=== PATIENT | male | born 1960 | race Caucasian/White ===

== ENCOUNTER 2018-02-02 02:28 | Inpatient (IN) | payer MEDICARE, MEDICAID ==
[~2018-02-02] VITALS: Ht 170.2 cm; Wt 103.0 kg
[~2018-02-02 02:28] MED LIST: ABAC1TAB7 PO; ALPH200C PO; ASPI-496 PO; ATAZ150C PO; ATAZ200C PO; BENZ1TAB61 PO; BENZ2TAB6 PO; CITA20TA9 PO; CLON0.5T20 PO; FLUD0.1T PO; MULT-257 PO; NAPR-685 PO; OMEG-82 PO; PALI1.5T PO; PALI9TAB PO; SODI1TAB15 PO
[2018-02-02] MEDS ORDERED: SODIUM CHLORIDE 0.9% 1,000ML IVBOLUS ONE ×2 (03:00→03:30)
[2018-02-02 03:04] LABS: BASOPHILS # (AUTO) 0.01 x10^3/uL (0-0.1); BASOPHILS % (AUTO) 0 % (0-1); EOSINOPHILS % (AUTO) 0 % (1-7); LYMPHOCYTES # (AUTO) 0.25 x10^3/uL (1-3.4); LYMPHOCYTES % (AUTO) 2 % (22-44); MD NO; MEAN CORPUSCULAR HEMOGLOBIN 33.3 pg (27.5-34.5); MEAN CORPUSCULAR HGB CONC 33.7 g/dL (33.2-36.2); MEAN CORPUSCULAR VOLUME 98.8 fL (81-97); MEAN PLATELET VOLUME 10.4 fL (7.4-10.4); MONOCYTES # (AUTO) 0.88 x10^3/uL (0.2-0.8); MONOCYTES % (AUTO) 7 % (2-9); NEUTROPHILS # (AUTO) 11.76 x10^3/uL (1.8-6.8); NEUTROPHILS % (AUTO) 91 % (42-75); PH, VENOUS 7.239 pH (7.320-7.420); PLATELET COUNT 173 x10^3/uL (130-400); RED BLOOD COUNT 5.02 x10^6/uL (4.38-5.82); RED CELL DISTRIBUTION WIDTH 12.5 % (9.4-14.8)
[2018-02-02 03:11] LABS: ACETONE, SERUM Large (80mg/dL) mg/dL (Negative)
[2018-02-02 03:18] LABS: ALANINE AMINOTRANSFERASE 58 U/L (12-78); ALBUMIN 3.7 g/dL (3.4-5.0); ANION GAP 28 mmol/L (5-15); CALCIUM 9.5 mg/dL (8.5-10.1); CHLORIDE 79 mmol/L (98-107); CREATININE 2.32 mg/dL (0.7-1.3)
[2018-02-02 03:22] LABS: ALKALINE PHOSPHATASE 186 U/L (45-117); BILIRUBIN,TOTAL 5.6 mg/dL (0.2-1.0); TOTAL PROTEIN 7.6 g/dL (6.4-8.2); TROPONIN I < 0.015 ng/mL (0.000-0.045)
[2018-02-02] MEDS ORDERED: REGULAR INSULIN 62.5 UNITS in SODIUM CHLORIDE 0.9% 249.375 ML IV PRN ×2 (03:25→04:53)
[2018-02-02 03:29] LABS: CULTURE INDICATED? NO; MICROSCOPIC AUTO
[2018-02-02] MEDS ORDERED: SODIUM CHLORIDE 0.9% 1,000 ML IV ONE (04:10)
[2018-02-02] MEDS ORDERED: D5%-0.45% NACL 1,000 ML IV PRN ×2 (04:53→10:00)
[2018-02-02] MEDS ORDERED: SODIUM CHLORIDE 0.9% 1,000 ML IV SCH ×2 (04:53→09:55)
[2018-02-02] MEDS ORDERED: DEXTROSE 4 GM TAB.CHEW PO PRN (05:00)
[2018-02-02] MEDS ORDERED: DEXTROSE 50%, 50ML SYRINGE IVPush PRN (05:00)
[2018-02-02] MEDS ORDERED: GLUCAGON 1 MG IM PRN (05:00)
[2018-02-02 05:16] LABS: ANION GAP 24 mmol/L (5-15); CALCIUM 8.7 mg/dL (8.5-10.1); CHLORIDE 99 mmol/L (98-107)
[2018-02-02 05:20] LABS: CREATININE 1.68 mg/dL (0.7-1.3)
[2018-02-02 05:28] LABS: HEMOGLOBIN A1C 11.8 % (4.2-6.3)
[2018-02-02] MEDS ORDERED: ENOXAPARIN 30 MG/0.3 ML SQ SCH (09:00)
[2018-02-02 09:26] LABS: ANION GAP 13 mmol/L (5-15); CALCIUM 9.1 mg/dL (8.5-10.1); CHLORIDE 102 mmol/L (98-107); CREATININE 1.78 mg/dL (0.7-1.3)
[2018-02-02] MEDS ORDERED: POTASSIUM CHLORIDE 10% 40 MEQ/30 ML UDC PO ONE (10:00)
[2018-02-02 10:16] LABS: AMPHETAMINE SCREEN, URINE Negative (Negative); BARBITURATE SCREEN, URINE Negative (Negative); BENZODIAZEPINE SCREEN, URINE Negative (Negative); CANNABINOID SCREEN, URINE Negative (Negative); COCAINE SCREEN, URINE Negative (Negative); METHADONE SCREEN, URINE Negative (Negative); OPIATE SCREEN, URINE Negative (Negative)
[2018-02-02] MEDS: SODIUM CHLORIDE FLUSH 10ML SYR IVF SCH ×2 (10:23→21:13)
[2018-02-02] MEDS: ENOXAPARIN 40 MG/0.4 ML SQ SCH (10:23)
[2018-02-02] MEDS: REGULAR INSULIN 62.5 UNITS in SODIUM CHLORIDE 0.9% 249.375 ML IV PRN (10:24)
[2018-02-02 13:41] LABS: ANION GAP 11 mmol/L (5-15); CALCIUM 9.2 mg/dL (8.5-10.1); CHLORIDE 109 mmol/L (98-107); CREATININE 1.61 mg/dL (0.7-1.3)
[2018-02-02] MEDS ORDERED: INSULIN GLARGINE 100 UNITS/ML, PEN SQ-INSULIN SCH (16:30)
[2018-02-02 18:37] LABS: ANION GAP 14 mmol/L (5-15); CALCIUM 8.2 mg/dL (8.5-10.1); CHLORIDE 105 mmol/L (98-107); CREATININE 1.31 mg/dL (0.7-1.3)
[2018-02-02] MEDS ORDERED: POTASSIUM CHLORIDE 20 MEQ TAB.ER.PRT PO ONE (19:30)
[2018-02-02] MEDS ORDERED: POTASSIUM CHLORIDE 40 MEQ in SODIUM CHLORIDE 0.9% 500 ML IV ONE (20:30)
[2018-02-02] MEDS: FLUDROCORTISONE 0.1 MG TABLET PO SCH (21:14)
[2018-02-02 21:56] LABS: ANION GAP 11 mmol/L (5-15); CALCIUM 8.8 mg/dL (8.5-10.1); CHLORIDE 108 mmol/L (98-107); CREATININE 1.21 mg/dL (0.7-1.3)
[2018-02-03 01:03] LABS: ANION GAP 11 mmol/L (5-15); CALCIUM 8.4 mg/dL (8.5-10.1); CHLORIDE 109 mmol/L (98-107); CREATININE 0.94 mg/dL (0.7-1.3)
[2018-02-03 04:00] VITALS: BP 140/76
[2018-02-03] MEDS: REGULAR INSULIN 62.5 UNITS in SODIUM CHLORIDE 0.9% 249.375 ML IV PRN (05:34)
[2018-02-03 05:55] LABS: CHLORIDE 109 mmol/L (98-107)
[2018-02-03 06:03] LABS: ALANINE AMINOTRANSFERASE 55 U/L (12-78); ALBUMIN 2.9 g/dL (3.4-5.0); ALKALINE PHOSPHATASE 89 U/L (45-117); ANION GAP 9 mmol/L (5-15); BILIRUBIN,TOTAL 3.4 mg/dL (0.2-1.0); CALCIUM 8.1 mg/dL (8.5-10.1); CREATININE 1.03 mg/dL (0.7-1.3); TOTAL PROTEIN 5.9 g/dL (6.4-8.2)
[2018-02-03 06:11] LABS: BASOPHILS % (AUTO) 0 % (0-1); EOSINOPHILS # (AUTO) 0.03 x10^3/uL (0-0.4); EOSINOPHILS % (AUTO) 1 % (1-7); LYMPHOCYTES # (AUTO) 0.56 x10^3/uL (1-3.4); LYMPHOCYTES % (AUTO) 11 % (22-44); MD NO; MEAN CORPUSCULAR HEMOGLOBIN 33.8 pg (27.5-34.5); MEAN CORPUSCULAR VOLUME 96.5 fL (81-97); MEAN PLATELET VOLUME 8.9 fL (7.4-10.4); MONOCYTES # (AUTO) 0.58 x10^3/uL (0.2-0.8); MONOCYTES % (AUTO) 12 % (2-9); NEUTROPHILS # (AUTO) 3.89 x10^3/uL (1.8-6.8); NEUTROPHILS % (AUTO) 77 % (42-75); PLATELET COUNT 113 x10^3/uL (130-400); RED BLOOD COUNT 4.29 x10^6/uL (4.38-5.82); RED CELL DISTRIBUTION WIDTH 12.9 % (9.4-14.8)
[2018-02-03] MEDS ORDERED: LAMIVUDINE PO SCH (09:00)
[2018-02-03] MEDS ORDERED: VANCOMYCIN PER PHARMACY MC PRN ×2 (09:00→13:00)
[2018-02-03] MEDS ORDERED: POTASSIUM PHOSPHATE 44 MEQ in SODIUM CHLORIDE 0.9% 500 ML IV ONE (09:00)
[2018-02-03] MEDS ORDERED: ABACAVIR SULFATE PO SCH (09:00)
[2018-02-03] MEDS ORDERED: PHARMACOKINETIC MONITORING MC PRN ×2 (09:30→14:00)
[2018-02-03] MEDS ORDERED: PHARMACOKINETIC CONSULTATION MC ONE ×2 (09:30→14:00)
[2018-02-03] MEDS: LAMIVUDINE 150 MG TABLET PO SCH (10:30)
[2018-02-03] MEDS: ATAZANAVIR 150 MG PO SCH (10:30)
[2018-02-03] MEDS: OMEGA-3/FISH OIL CAPSULE PO SCH (10:59)
[2018-02-03] MEDS: FLUDROCORTISONE 0.1 MG TABLET PO SCH ×3 (10:59→21:39)
[2018-02-03] MEDS: MULTIVITAMIN 1 TABLET PO SCH (10:59)
[2018-02-03] MEDS: BENZTROPINE 1 MG TABLET PO SCH (10:59)
[2018-02-03] MEDS: ASPIRIN 81 MG TABLET EC PO SCH (11:00)
[2018-02-03] MEDS: CITALOPRAM 20 MG TABLET PO SCH (11:00)
[2018-02-03] MEDS: ENOXAPARIN 40 MG/0.4 ML SQ SCH (11:01)
[2018-02-03] MEDS: ABACAVIR 300 MG TABLET PO SCH (11:12)
[2018-02-03] MEDS: VANCOMYCIN 2,000 MG in SODIUM CHLORIDE 0.9% 500 ML IV SCH (12:04)
[2018-02-03 12:18] LABS: ANION GAP 9 mmol/L (5-15); CALCIUM 8.3 mg/dL (8.5-10.1); CHLORIDE 108 mmol/L (98-107); CREATININE 0.84 mg/dL (0.7-1.3)
[2018-02-03] MEDS ORDERED: INSULIN LISPRO 100 UNITS/ML, PEN SQ-INSULIN ONE (12:30)
[2018-02-03] MEDS ORDERED: INSULIN GLARGINE 100 UNITS/ML, PEN SQ-INSULIN SCH (12:30)
[2018-02-03] MEDS ORDERED: INSULIN LISPRO 100 UNITS/ML, PEN SQ-INSULIN SCH (12:30)
[2018-02-03] MEDS: SODIUM CHLORIDE FLUSH 10ML SYR IVF SCH ×2 (12:48→21:41)
[2018-02-03] MEDS ORDERED: LIDOCAINE-MPF 1%, 2ML ONE (13:07)
[2018-02-03] MEDS: INSULIN LISPRO 100 UNITS/ML, PEN SQ-INSULIN SCH ×3 (13:56→21:41)
[2018-02-03] MEDS ORDERED: VANCOMYCIN 2,000 MG in SODIUM CHLORIDE 0.9% 500 ML IV SCH (14:00)
[2018-02-03] MEDS ORDERED: INSULIN GLARGINE 100 UNITS/ML, PEN SQ-INSULIN ONE (14:00)
[2018-02-03 19:10] LABS: ANION GAP 8 mmol/L (5-15); CALCIUM 8.2 mg/dL (8.5-10.1); CHLORIDE 108 mmol/L (98-107); CREATININE 0.82 mg/dL (0.7-1.3)
[2018-02-04] MEDS ORDERED: INSULIN GLARGINE 100 UNITS/ML, PEN SQ-INSULIN SCH ×2 (00:30→12:30)
[2018-02-04] MEDS: INSULIN LISPRO 100 UNITS/ML, PEN SQ-INSULIN SCH ×4 (01:15→21:47)
[2018-02-04] MEDS: VANCOMYCIN 2,000 MG in SODIUM CHLORIDE 0.9% 500 ML IV SCH (03:19)
[2018-02-04 04:00] VITALS: BP 138/77
[2018-02-04 04:51] LABS: MEAN CORPUSCULAR HEMOGLOBIN 33.9 pg (27.5-34.5); MEAN CORPUSCULAR VOLUME 96.7 fL (81-97); MEAN PLATELET VOLUME 8.6 fL (7.4-10.4); PLATELET COUNT 95 x10^3/uL (130-400); RED BLOOD COUNT 4.01 x10^6/uL (4.38-5.82); RED CELL DISTRIBUTION WIDTH 12.7 % (9.4-14.8)
[2018-02-04 04:55] LABS: ALANINE AMINOTRANSFERASE 67 U/L (12-78); ALBUMIN 2.5 g/dL (3.4-5.0); ANION GAP 11 mmol/L (5-15); CALCIUM 8.3 mg/dL (8.5-10.1); CHLORIDE 108 mmol/L (98-107); CREATININE 0.79 mg/dL (0.7-1.3)
[2018-02-04 04:57] LABS: ALKALINE PHOSPHATASE 83 U/L (45-117); BILIRUBIN,TOTAL 4.4 mg/dL (0.2-1.0); TOTAL PROTEIN 5.4 g/dL (6.4-8.2)
[2018-02-04 05:37] LABS: BASOPHILS # (AUTO) 0.02 x10^3/uL (0-0.1); BASOPHILS % (AUTO) 1 % (0-1); EOSINOPHILS # (AUTO) 0.01 x10^3/uL (0-0.4); EOSINOPHILS % (AUTO) 0 % (1-7); LYMPHOCYTES # (AUTO) 0.72 x10^3/uL (1-3.4); LYMPHOCYTES % (AUTO) 23 % (22-44); MD SCAN; MONOCYTES # (AUTO) 0.38 x10^3/uL (0.2-0.8); MONOCYTES % (AUTO) 12 % (2-9); NEUTROPHILS # (AUTO) 2.06 x10^3/uL (1.8-6.8); NEUTROPHILS % (AUTO) 65 % (42-75)
[2018-02-04] MEDS ORDERED: POTASSIUM PHOSPHATE 44 MEQ in SODIUM CHLORIDE 0.9% 500 ML IV ONE (07:30)
[2018-02-04 08:32] LABS: FOLATE LEVEL 15.5 ng/mL (3.1-17.5); THYROID STIMULATING HORMONE 0.473 mIU/L (0.358-3.740)
[2018-02-04] MEDS: ATAZANAVIR 150 MG PO SCH (09:50)
[2018-02-04] MEDS: OMEGA-3/FISH OIL CAPSULE PO SCH (09:56)
[2018-02-04] MEDS: CITALOPRAM 20 MG TABLET PO SCH (09:56)
[2018-02-04] MEDS: ASPIRIN 81 MG TABLET EC PO SCH (09:56)
[2018-02-04] MEDS: FLUDROCORTISONE 0.1 MG TABLET PO SCH ×3 (09:56→21:01)
[2018-02-04] MEDS: ENOXAPARIN 40 MG/0.4 ML SQ SCH (09:56)
[2018-02-04] MEDS: BENZTROPINE 1 MG TABLET PO SCH (09:56)
[2018-02-04] MEDS: MULTIVITAMIN 1 TABLET PO SCH (09:57)
[2018-02-04] MEDS: ABACAVIR 300 MG TABLET PO SCH (10:01)
[2018-02-04] MEDS: LAMIVUDINE 150 MG TABLET PO SCH (10:01)
[2018-02-04] MEDS: SODIUM CHLORIDE FLUSH 10ML SYR IVF SCH ×2 (10:03→21:01)
[2018-02-04 19:02] VITALS: BP 132/74
[2018-02-05] MEDS: INSULIN GLARGINE 100 UNITS/ML, PEN SQ-INSULIN SCH ×3 (00:21→21:42)
[2018-02-05 03:11] LABS: MEAN CORPUSCULAR HEMOGLOBIN 33.8 pg (27.5-34.5); MEAN CORPUSCULAR HGB CONC 34.8 g/dL (33.2-36.2); MEAN CORPUSCULAR VOLUME 97.1 fL (81-97); RED CELL DISTRIBUTION WIDTH 12.9 % (9.4-14.8)
[2018-02-05 03:20] LABS: ANION GAP 7 mmol/L (5-15); CALCIUM 8.6 mg/dL (8.5-10.1); CHLORIDE 108 mmol/L (98-107); CREATININE 0.79 mg/dL (0.7-1.3)
[2018-02-05 03:25] LABS: BASOPHILS # (AUTO) 0.01 x10^3/uL (0-0.1); BASOPHILS % (AUTO) 0 % (0-1); EOSINOPHILS # (AUTO) 0.02 x10^3/uL (0-0.4); EOSINOPHILS % (AUTO) 1 % (1-7); LYMPHOCYTES # (AUTO) 0.57 x10^3/uL (1-3.4); LYMPHOCYTES % (AUTO) 25 % (22-44); MD SCAN; MEAN PLATELET VOLUME 8.4 fL (7.4-10.4); MONOCYTES # (AUTO) 0.29 x10^3/uL (0.2-0.8); MONOCYTES % (AUTO) 12 % (2-9); NEUTROPHILS # (AUTO) 1.43 x10^3/uL (1.8-6.8); NEUTROPHILS % (AUTO) 62 % (42-75); PLATELET COUNT 86 x10^3/uL (130-400)
[2018-02-05] MEDS ORDERED: POTASSIUM CHLORIDE 20 MEQ TAB.ER.PRT PO ONE ×2 (06:30→11:30)
[2018-02-05 06:45] VITALS: BP 126/76
[2018-02-05] MEDS: ABACAVIR 300 MG TABLET PO SCH (07:58)
[2018-02-05] MEDS: LAMIVUDINE 150 MG TABLET PO SCH (07:58)
[2018-02-05] MEDS: SODIUM CHLORIDE FLUSH 10ML SYR IVF SCH ×2 (07:59→20:31)
[2018-02-05] MEDS: FLUDROCORTISONE 0.1 MG TABLET PO SCH ×3 (07:59→20:31)
[2018-02-05] MEDS: CITALOPRAM 20 MG TABLET PO SCH (07:59)
[2018-02-05] MEDS: OMEGA-3/FISH OIL CAPSULE PO SCH (07:59)
[2018-02-05] MEDS: ASPIRIN 81 MG TABLET EC PO SCH (07:59)
[2018-02-05] MEDS: INSULIN LISPRO 100 UNITS/ML, PEN SQ-INSULIN SCH ×4 (07:59→21:42)
[2018-02-05] MEDS: BENZTROPINE 1 MG TABLET PO SCH (07:59)
[2018-02-05] MEDS: MULTIVITAMIN 1 TABLET PO SCH (07:59)
[2018-02-05] MEDS: ATAZANAVIR 150 MG PO SCH (07:59)
[2018-02-05] MEDS: ENOXAPARIN 40 MG/0.4 ML SQ SCH (08:00)
[2018-02-05 11:30] VITALS: BP 128/80
[2018-02-05 15:02] VITALS: BP 128/80
[2018-02-05 19:02] VITALS: BP 149/87
[2018-02-06 00:44] VITALS: BP 146/88
[2018-02-06 04:34] LABS: BASOPHILS # (AUTO) 0.01 x10^3/uL (0-0.1); BASOPHILS % (AUTO) 0 % (0-1); EOSINOPHILS # (AUTO) 0.06 x10^3/uL (0-0.4); EOSINOPHILS % (AUTO) 2 % (1-7); LYMPHOCYTES # (AUTO) 0.75 x10^3/uL (1-3.4); LYMPHOCYTES % (AUTO) 25 % (22-44); MD NO; MEAN CORPUSCULAR HEMOGLOBIN 33.8 pg (27.5-34.5); MEAN CORPUSCULAR HGB CONC 34.5 g/dL (33.2-36.2); MEAN CORPUSCULAR VOLUME 97.9 fL (81-97); MEAN PLATELET VOLUME 8.7 fL (7.4-10.4); MONOCYTES # (AUTO) 0.25 x10^3/uL (0.2-0.8); MONOCYTES % (AUTO) 8 % (2-9); NEUTROPHILS # (AUTO) 1.95 x10^3/uL (1.8-6.8); NEUTROPHILS % (AUTO) 65 % (42-75); PLATELET COUNT 104 x10^3/uL (130-400); RED BLOOD COUNT 3.74 x10^6/uL (4.38-5.82)
[2018-02-06 04:41] LABS: ALBUMIN 2.5 g/dL (3.4-5.0); ANION GAP 8 mmol/L (5-15); CALCIUM 8.7 mg/dL (8.5-10.1); CHLORIDE 110 mmol/L (98-107)
[2018-02-06 04:42] LABS: CREATININE 0.82 mg/dL (0.7-1.3)
[2018-02-06 07:37] VITALS: BP 137/84
[2018-02-06] MEDS: SODIUM CHLORIDE FLUSH 10ML SYR IVF SCH ×2 (09:00→22:43)
[2018-02-06] MEDS: REYATAZ HOMEMEDPO SCH (09:00)
[2018-02-06] MEDS: INSULIN LISPRO 100 UNITS/ML, PEN SQ-INSULIN SCH ×4 (09:03→22:41)
[2018-02-06] MEDS: INSULIN GLARGINE 100 UNITS/ML, PEN SQ-INSULIN SCH ×3 (09:04→22:43)
[2018-02-06] MEDS: OMEGA-3/FISH OIL CAPSULE PO SCH (09:05)
[2018-02-06] MEDS: BENZTROPINE 1 MG TABLET PO SCH (09:06)
[2018-02-06] MEDS: MULTIVITAMIN 1 TABLET PO SCH (09:06)
[2018-02-06] MEDS: ENOXAPARIN 40 MG/0.4 ML SQ SCH (09:06)
[2018-02-06] MEDS: FLUDROCORTISONE 0.1 MG TABLET PO SCH ×3 (09:06→22:41)
[2018-02-06] MEDS: CITALOPRAM 20 MG TABLET PO SCH (09:06)
[2018-02-06] MEDS: ASPIRIN 81 MG TABLET EC PO SCH (09:06)
[2018-02-06 14:22] VITALS: BP 135/81
[2018-02-06 19:09] VITALS: BP 128/78
[2018-02-07 02:03] VITALS: BP 125/79
[2018-02-07 04:35] LABS: MEAN CORPUSCULAR HEMOGLOBIN 33.7 pg (27.5-34.5); MEAN CORPUSCULAR HGB CONC 34.4 g/dL (33.2-36.2); MEAN PLATELET VOLUME 8.3 fL (7.4-10.4); PLATELET COUNT 109 x10^3/uL (130-400); RED BLOOD COUNT 3.39 x10^6/uL (4.38-5.82); RED CELL DISTRIBUTION WIDTH 13.3 % (9.4-14.8)
[2018-02-07 04:41] LABS: ALBUMIN 2.2 g/dL (3.4-5.0); ANION GAP 5 mmol/L (5-15); CALCIUM 8.7 mg/dL (8.5-10.1); CHLORIDE 107 mmol/L (98-107); CREATININE 0.83 mg/dL (0.7-1.3)
[2018-02-07 05:01] LABS: BASOPHILS # (AUTO) 0.02 x10^3/uL (0-0.1); BASOPHILS % (AUTO) 1 % (0-1); EOSINOPHILS # (AUTO) 0.04 x10^3/uL (0-0.4); EOSINOPHILS % (AUTO) 2 % (1-7); LYMPHOCYTES # (AUTO) 0.61 x10^3/uL (1-3.4); LYMPHOCYTES % (AUTO) 25 % (22-44); MD SCAN; MONOCYTES # (AUTO) 0.29 x10^3/uL (0.2-0.8); MONOCYTES % (AUTO) 12 % (2-9); NEUTROPHILS # (AUTO) 1.48 x10^3/uL (1.8-6.8); NEUTROPHILS % (AUTO) 61 % (42-75)
[2018-02-07] MEDS ORDERED: MAGNESIUM SULFATE PMX 2GM/50ML 50 ML IV ONE (07:30)
[2018-02-07 07:55] VITALS: BP 128/83
[2018-02-07] MEDS: FLUDROCORTISONE 0.1 MG TABLET PO SCH ×3 (08:01→21:57)
[2018-02-07] MEDS: CITALOPRAM 20 MG TABLET PO SCH (08:01)
[2018-02-07] MEDS: BENZTROPINE 1 MG TABLET PO SCH (08:01)
[2018-02-07] MEDS: MULTIVITAMIN 1 TABLET PO SCH (08:01)
[2018-02-07] MEDS: OMEGA-3/FISH OIL CAPSULE PO SCH (08:01)
[2018-02-07] MEDS: ASPIRIN 81 MG TABLET EC PO SCH (08:01)
[2018-02-07] MEDS: INSULIN GLARGINE 100 UNITS/ML, PEN SQ-INSULIN SCH ×3 (08:02→23:39)
[2018-02-07] MEDS: REYATAZ HOMEMEDPO SCH (08:03)
[2018-02-07] MEDS: INSULIN LISPRO 100 UNITS/ML, PEN SQ-INSULIN SCH ×4 (08:03→23:40)
[2018-02-07] MEDS: ENOXAPARIN 40 MG/0.4 ML SQ SCH (08:03)
[2018-02-07] MEDS: SODIUM CHLORIDE FLUSH 10ML SYR IVF SCH ×2 (08:03→21:57)
[2018-02-07 15:40] VITALS: BP 138/84
[2018-02-07 18:48] VITALS: BP 127/81
[2018-02-08 00:30] VITALS: BP 134/84
[2018-02-08 05:52] LABS: ANION GAP 5 mmol/L (5-15); CHLORIDE 108 mmol/L (98-107)
[2018-02-08 05:57] LABS: ALANINE AMINOTRANSFERASE 74 U/L (12-78); ALBUMIN 2.4 g/dL (3.4-5.0); ALKALINE PHOSPHATASE 95 U/L (45-117); BILIRUBIN,TOTAL 1.1 mg/dL (0.2-1.0); CALCIUM 8.8 mg/dL (8.5-10.1); CREATININE 0.95 mg/dL (0.7-1.3); TOTAL PROTEIN 5.4 g/dL (6.4-8.2)
[2018-02-08 06:00] LABS: BASOPHILS # (AUTO) 0.02 x10^3/uL (0-0.1); BASOPHILS % (AUTO) 1 % (0-1); EOSINOPHILS # (AUTO) 0.06 x10^3/uL (0-0.4); EOSINOPHILS % (AUTO) 2 % (1-7); LYMPHOCYTES % (AUTO) 22 % (22-44); MD NO; MEAN CORPUSCULAR HEMOGLOBIN 33.4 pg (27.5-34.5); MEAN CORPUSCULAR HGB CONC 33.7 g/dL (33.2-36.2); MEAN CORPUSCULAR VOLUME 99.1 fL (81-97); MEAN PLATELET VOLUME 8.4 fL (7.4-10.4); MONOCYTES # (AUTO) 0.42 x10^3/uL (0.2-0.8); MONOCYTES % (AUTO) 13 % (2-9); NEUTROPHILS # (AUTO) 1.95 x10^3/uL (1.8-6.8); NEUTROPHILS % (AUTO) 62 % (42-75); PLATELET COUNT 121 x10^3/uL (130-400); RED BLOOD COUNT 3.54 x10^6/uL (4.38-5.82); RED CELL DISTRIBUTION WIDTH 12.8 % (9.4-14.8)
[2018-02-08] MEDS: INSULIN LISPRO 100 UNITS/ML, PEN SQ-INSULIN SCH ×5 (07:00→16:28)
[2018-02-08 07:38] VITALS: BP 145/80
[2018-02-08] MEDS: CITALOPRAM 20 MG TABLET PO SCH (08:44)
[2018-02-08] MEDS: BENZTROPINE 1 MG TABLET PO SCH (08:44)
[2018-02-08] MEDS: OMEGA-3/FISH OIL CAPSULE PO SCH (08:44)
[2018-02-08] MEDS: MULTIVITAMIN 1 TABLET PO SCH (08:44)
[2018-02-08] MEDS: FLUDROCORTISONE 0.1 MG TABLET PO SCH ×2 (08:44→16:27)
[2018-02-08] MEDS: ASPIRIN 81 MG TABLET EC PO SCH (08:44)
[2018-02-08] MEDS: ENOXAPARIN 40 MG/0.4 ML SQ SCH (08:45)
[2018-02-08] MEDS: SODIUM CHLORIDE FLUSH 10ML SYR IVF SCH (08:46)
[2018-02-08] MEDS: REYATAZ HOMEMEDPO SCH (08:47)
[2018-02-08] MEDS ORDERED: INSULIN GLARGINE 100 UNITS/ML, PEN SQ-INSULIN SCH (09:00)
[2018-02-08] MEDS ORDERED: INSU100I13 SQ-INSULIN ×2 (13:41)
[2018-02-08 15:18] VITALS: BP_SYST 133; BP_DIAS 83; BP_DIAS 84
== END 2018-02-08 18:09 | disposition home or self-care (01) | DRG 974 ==
LOC: ED 02:52 → EDIP 04:10 → CCU 05:40 → 3NE 02-04 15:14
PROVIDERS: ADMIT Hospitalist; ATTEND Hospitalist
PROC: 02HV33Z Insertion of Infusion Device into Superior Vena Cava, Percutaneous Approach (ICD-10-PCS; principal; 2018-02-03)
DX: A41.9 Sepsis, unspecified organism (principal); N17.0 Acute kidney failure with tubular necrosis; B20 Human immunodeficiency virus [HIV] disease; G93.40 Encephalopathy, unspecified; E10.10 Type 1 diabetes mellitus with ketoacidosis without coma; E87.1 Hypo-osmolality and hyponatremia; F25.9 Schizoaffective disorder, unspecified; I10 Essential (primary) hypertension; R29.6 Repeated falls; Z79.4 Long term (current) use of insulin; Z83.3 Family history of diabetes mellitus; Z90.49 Acquired absence of other specified parts of digestive tract; Z88.8 Allergy status to other drugs, medicaments and biological substances
CPT/HCPCS: 36415; 70450; 70551; 71045; 80048; 80053; 80307; 81001; 82010; 82040; 82607; 82746; 82803; 82947; 82962; 83036; 83605; 83735; 84100; 84145; 84443; 84484; 84681; 85025; 87040; 87081; 93005; 96361; 96374; J1650; J1815; J3370; J3480; J3475; J7030; J7040; J7050

== ENCOUNTER 2018-05-28 14:13 | Emergency (ER) | payer MEDICARE, MEDICAID ==
[~2018-05-28] VITALS: Ht 170.2 cm; Wt 100.0 kg
[~2018-05-28 14:13] MED LIST changes: +INSU100I13 SQ-INSULIN
[2018-05-28 14:55] LABS: BASOPHILS # (AUTO) 0.02 x10^3/uL (0-0.1); BASOPHILS % (AUTO) 1 % (0-1); EOSINOPHILS # (AUTO) 0.06 x10^3/uL (0-0.4); EOSINOPHILS % (AUTO) 2 % (1-7); LYMPHOCYTES % (AUTO) 24 % (22-44); MD NO; MEAN CORPUSCULAR HEMOGLOBIN 32.8 pg (27.5-34.5); MEAN CORPUSCULAR HGB CONC 34.2 g/dL (33.2-36.2); MEAN PLATELET VOLUME 7.6 fL (7.4-10.4); MONOCYTES # (AUTO) 0.28 x10^3/uL (0.2-0.8); MONOCYTES % (AUTO) 9 % (2-9); NEUTROPHILS # (AUTO) 2.14 x10^3/uL (1.8-6.8); NEUTROPHILS % (AUTO) 65 % (42-75); PLATELET COUNT 135 x10^3/uL (130-400); RED BLOOD COUNT 4.41 x10^6/uL (4.38-5.82); RED CELL DISTRIBUTION WIDTH 13.3 % (9.4-14.8)
[2018-05-28 15:03] LABS: ALANINE AMINOTRANSFERASE 43 U/L (12-78); ALBUMIN 3.7 g/dL (3.4-5.0); CALCIUM 9.4 mg/dL (8.5-10.1); CREATININE 1.03 mg/dL (0.7-1.3)
[2018-05-28 15:06] LABS: ALKALINE PHOSPHATASE 63 U/L (45-117); BILIRUBIN,TOTAL 1.5 mg/dL (0.2-1.0); TOTAL PROTEIN 7.1 g/dL (6.4-8.2)
[2018-05-28 15:21] LABS: ANION GAP 8 mmol/L (5-15); CHLORIDE 107 mmol/L (98-107)
[2018-05-28] MEDS ORDERED: MECLIZINE CHEWABLE 25 MG TAB ONE (15:26)
[2018-05-28] MEDS ORDERED: MECLIZINE CHEWABLE 25 MG TAB PO ONE (15:30)
[2018-05-28 16:39] VITALS: BP 147/81
== END 2018-05-28 16:53 | disposition home or self-care (01) ==
LOC: ED 16:47
DX: H81.399 Other peripheral vertigo, unspecified ear (principal); F25.9 Schizoaffective disorder, unspecified; I10 Essential (primary) hypertension; E11.9 Type 2 diabetes mellitus without complications; Z21 Asymptomatic human immunodeficiency virus [HIV] infection status; Z86.19 Personal history of other infectious and parasitic diseases; Z87.891 Personal history of nicotine dependence; Z79.899 Other long term (current) drug therapy; Z79.4 Long term (current) use of insulin
CPT/HCPCS: 36415; 80053; 85025; 93005; 99285

== ENCOUNTER → 2018-11-02 | Outpatient (CLI) | payer MEDICARE, MEDICAID | END | disposition home or self-care (01) | LOC: CFH 13:53 | PROVIDERS: ATTEND Internal Medicine Cardiovascular Disease | DX: I51.7 Cardiomegaly (principal); E11.9 Type 2 diabetes mellitus without complications; Z87.891 Personal history of nicotine dependence | CPT/HCPCS: 93306 ==

== ENCOUNTER 2018-11-07 10:58 | Day surgery (SDC) | payer MEDICARE, MEDICAID ==
[~2018-11-07] VITALS: Ht 170.2 cm; Wt 103.6 kg
[2018-11-07 12:17] VITALS: BP 157/105
== END 2018-11-07 13:30 | disposition home or self-care (01) ==
LOC: CACL 10:58
PROVIDERS: ATTEND Internal Medicine Cardiovascular Disease
DX: R55 Syncope and collapse (principal); E11.9 Type 2 diabetes mellitus without complications; Z98.890 Other specified postprocedural states; Z88.6 Allergy status to analgesic agent; Z88.1 Allergy status to other antibiotic agents; Z88.8 Allergy status to other drugs, medicaments and biological substances; Z87.891 Personal history of nicotine dependence
CPT/HCPCS: 93660

== ENCOUNTER 2021-05-07 22:23 | Emergency (ER) | payer MEDICARE, MEDICAID ==
[~2021-05-07] VITALS: Ht 170.2 cm; Wt 104.0 kg
[~2021-05-07 22:23] MED LIST changes: +ASCO500T9 PO; +AZIT250T PO; +BREX1TAB PO; +CEFD300C37 PO; +CHOL500045 PO; +FLUT9.9S NAS; +IBUP-1223 PO; +INSU100C5 SQ-INSULIN; +LOSA100T14 PO; +METF500T17 PO; +METO-264 PO; +PALI234D IM; +PALI3TAB2 PO; +THIA100T67 PO; +TRIH2TAB3 PO; +VITA200C33 PO; +ZINC220C7 PO; +triumeq
[2021-05-07 22:28] VITALS: BP 128/79
[2021-05-07 23:29] LABS: BASOPHILS % (AUTO) 1 % (0-1); EOSINOPHILS % (AUTO) 2 % (1-7); LYMPHOCYTES % (AUTO) 38 % (22-44); MEAN CORPUSCULAR HGB CONC 34.4 g/dL (33.2-36.2); MEAN PLATELET VOLUME 7.6 fL (7.4-10.4); MONOCYTES % (AUTO) 9 % (2-9); NEUTROPHILS % (AUTO) 50 % (42-75); PLATELET COUNT 125 x10^3/uL (130-400); RED BLOOD COUNT 4.35 x10^6/uL (4.38-5.82); RED CELL DISTRIBUTION WIDTH 13.1 % (9.4-14.8)
[2021-05-07 23:36] LABS: ALBUMIN 3.6 g/dL (3.4-5.0); ANION GAP 5 mmol/L (5-15); CALCIUM 9.8 mg/dL (8.5-10.1); CHLORIDE 104 mmol/L (98-107); CREATININE 1.54 mg/dL (0.7-1.3)
--- NOTE | 2021-05-08 00:51 | NUR ---
PT LEAVING AMA. PT ENCOURAGED TO SEE MD. PT REFUSED.
== END 2021-05-08 00:53 | disposition left against medical advice (07) ==
LOC: ED 23:59
DX: R20.2 Paresthesia of skin (principal); M54.2 Cervicalgia; R51.9 Headache, unspecified; E11.9 Type 2 diabetes mellitus without complications
CPT/HCPCS: 36415; 70450; 80048; 82040; 85025; 93005; 99285